=== PATIENT | male | born 1945 | race Caucasian/White ===

== ENCOUNTER → 2017-12-31 15:16 | Outpatient (POV) | payer MEDICARE, SELFPAY | PROVIDERS: PCP Family Medicine; Visit Provider Nurse Practitioner Acute Care | DX: Z00.00 Encounter for general adult medical examination without abnormal findings (principal) ==

== ENCOUNTER → 2018-04-01 14:49 | Outpatient (POV) | payer MEDICARE, SELFPAY | PROVIDERS: Visit Provider Nurse Practitioner Acute Care | DX: Z00.00 Encounter for general adult medical examination without abnormal findings (principal) ==

== ENCOUNTER → 2018-07-08 13:19 | Outpatient (POV) | payer MEDICARE, SELFPAY | PROVIDERS: Visit Provider Nurse Practitioner Acute Care | DX: Z00.00 Encounter for general adult medical examination without abnormal findings (principal) ==

== ENCOUNTER → 2018-12-30 14:44 | Outpatient (POV) | payer MEDICARE, SELFPAY | PROVIDERS: PCP Family Medicine; Visit Provider Nurse Practitioner Family | DX: Z00.00 Encounter for general adult medical examination without abnormal findings (principal) ==

== ENCOUNTER → 2019-05-26 13:51 | Outpatient (POV) | payer MEDICARE, SELFPAY | PROVIDERS: Visit Provider Nurse Practitioner Family | DX: Z00.00 Encounter for general adult medical examination without abnormal findings (principal) ==

== ENCOUNTER → 2020-05-12 10:58 | Outpatient (CLI) | payer MEDICARE, SELFPAY ==
[2020-05-12 12:26] LABS: Coronavirus 19 IgG Antibody Negative (Negative); Coronavirus 19 IgM Antibody Negative (Negative)
== END ==
PROVIDERS: Visit Provider Internal Medicine Gastroenterology
DX: Z01.818 Encounter for other preprocedural examination (principal); Z03.818 Encounter for observation for suspected exposure to other biological agents ruled out; Z96.89 Presence of other specified functional implants
CPT/HCPCS: 36415; 86328

== ENCOUNTER 2020-05-14 11:28 | Day surgery (SDC) | payer MEDICARE, SELFPAY ==
[2020-05-11 11:47] VITALS: BMI 31.9
[2020-05-14] VITALS (9 sets, daily range): BP systolic 110–142; BP diastolic 62–91; PULSE 67–77; RESP 16–18; TEMP 36.4–36.6; O2SAT 95–98
[2020-05-14 11:56] LABS: POC Glucose,Bedside 145 (70-110)
--- NOTE | 2020-05-14 12:30 | FL_ITS ---
PROCEDURE: FL ERCP CLINICAL INDICATION: elevated liver enzymes COMPARISON: No exams were available for comparison FINDINGS: No previous exams available for comparison. Fluoroscopy time: 1 minutes and 41 seconds. The pancreatic duct is incompletely opacified. The duct appears slightly prominent in the pancreatic. Common bile duct has an unremarkable appearance. No common duct stones or dilatation evident. Please correlate with fluoroscopic findings. IMPRESSION: Unremarkable appearing common bile duct with incompletely opacified mildly prominent pancreatic duct. Dictated by: Nolberto Dempsey MD 05/14/2020 16:01 Nolberto Dempsey MD in [place] 05/14/2020 16:01
--- NOTE | 2020-05-14 13:06 | HMH.PROC ---
[facility] Procedure Note Procedure Note:: ERCP procedure Report: Endoscopic retrograde cholangiopancreatography with biliary sphincterotomy and balloon extraction Endoscopist: Ti Shay II, MD Referring Physician: David Cali MD Date of Procedure: May 14, 2020 Equipment: Olympus 180 side viewing endoscope duodenoscope Sedation: MAC sedation Indication: Mr. Madera is a 75-year-old gentleman with recent escalation of his liver chemistries. He also has had right upper quadrant abdominal pain and nausea. The patient recently had blood work on April 15, 2020 showing ALT 110, alkaline phosphatase 297 and total bilirubin 3.6. The patient had a white blood cell count of 4.6 and hemoglobin of 14.3. His lipase was elevated at 690. The patient also had a CT scan of the abdomen and pelvis on January 20, 2020 showing gallstones present within the gallbladder but no evidence of pericholecystic fluid. There was some nonspecific adenopathy in the upper abdomen. The patient's viral hepatitis serologies were negative. The patient does state that the right upper quadrant abdominal pain can radiate into the back. About a month ago he did have some fever and chills. He reports no darkened urine but has had some acholic stools. His liver chemistries were normal in September 2019. Procedure: Prior to the procedure, a history and physical exam was performed, and patient's medications and allergies were reviewed. The risks, benefits and alternatives of the sedation and procedure were discussed with the patient. All questions were answered and informed consent was obtained. The patient was brought to the fluoroscopic radiology room. Patient identification and proposed procedure were verified by the physician and the nurse. The patient was placed in a swimmer's position between left lateral decubitus and prone position and the scope was passed under direct vision. Throughout the procedure, the patient's blood pressure, pulse, and oxygen saturations were monitored continuously. The ERCP was accomplished without difficulty. The patient tolerated the procedure well. Findings: The side-viewing duodenal scope was passed directly into the upper esophagus and advanced to the second portion of the duodenum. There was some mild chronic gastritis and nonerosive GERD. The duodenum was normal. There was a periampullary diverticulum. Both the pancreatic duct and common bile duct were cannulated. The pancreatogram showed a 3 to 4 mm pancreatic duct with a more angulated genu. There were no intraductal filling defects, strictures or ductular ectasias. Next, the common bile duct was cannulated. The cholangiogram showed that the CBD diameter is 6-7 mm. There was normal filling of the intrahepatic biliary system. There was nonfilling of the cystic duct and gallbladder. There was delayed drainage of bile and contrast with some sludgy filling defect in the distal CBD. A generous biliary sphincterotomy was performed. The 9-12 balloon was dilated up to 9 mm from the hilum and swept through the biliary system with the passage of some yellow sludge but mostly bile and contrast. This was consistent with minor choledocholithiasis. The procedure was then ended. The patient was given Indocin subsequently for prophylaxis. Impression: 1. Minor choledocholithiasis status post biliary sphincterotomy and balloon extraction 2. Nonfilling of cystic duct possibly consistent with chronic cholecystitis 3. 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 Periampullary diverticulum (small) Plan: The patient should have clinical improvement with biliary sphincterotomy. I do feel that he has some chronic cholecystitis based upon his symptoms, gallstones and cholangiographic findings. I would recommend that he have minimally invasive laparoscopic cholecystectomy. I will discuss this with the patient and family.
--- NOTE | 2020-05-14 14:10 | HMH.ANESCL ---
[facility] Anesthesia Checklist - Patient Identification Patient Identification: Arm Band, Verbal (Name & ) - Structural Data Admitted From: Home Planned Operative Procedure/s: ERCP Consent for Planned Operative Procedure(s) Verified: Yes Verified Documents: Surgical Consent, History and Physical - NPO Status Verified Time NPO: 00:00 - Chart Verification Results Verified: None - Additional verifications Fingerstick Blood Glucose: 145 Anesthesia Reactions: No - Airway Assessment C-Spine Mobility Assessed: Yes TMJ Mobility Assessed: Yes Dentition: Dentures-good fit (Upper removed) - Neurological Assessment Level of Consciousness: Awake, Alert, Appropriate, Follows Commands Hx Seizures: No Numbness or tingling in extremities: Yes - Anesthesia Plan Anesthesia Risk discussed: Yes Anesthesia Plan: Verified ASA Class: III Anesthesia Type: MAC [facility] History I have reviewed the patient's past medical history: Yes Medical History: Reports:: Atrial Fibrillation, Cancer, Congestive Heart Failure, Coronary Artery Disease, Diabetes Mellitus Type 2, Gastroesophageal Reflux Disease(GERD), Hyperlipidemia, Hypertension, Internal Pacemaker, Peripheral Vascular Disease, Transient Ischemic Attacks (TIA) Denies:: Diabetes Mellitus Type 1, Lung Disease, MRSA, Seizures *Have you ever received a pneumonia vaccine?: Yes *Have you received a flu vaccine this season?: Yes Comment:: [place], obesity Anesthesia experience/problems:: None Laterality Cases: Right: Arthroscopy Shoulder Other Surgeries: Yes: Pacemaker, Other (Ankle sx, jaw, appy, Right shoulder, sinus sx, cardiac cath) Amputation: No Fractures: Yes (ankle, jaw) - *Social History Last grade of school completed: High school graduate Smoking Status: Current every day smoker Tobacco Type: cigarettes # Packs/Day (cigarettes): 1 Alcohol Intake: current Alcohol Intake Frequency:: holidays/special occasions only Substance Use Type: denies use *Occupational Status:: retired Housing: house Household Members: spouse, children *Travel in the last 8 weeks: None Family Hx:: Diabetes
== END 2020-05-14 14:17 | disposition home or self-care (01) ==
LOC: OUTP 11:32
PROVIDERS: PCP Family Medicine; Visit Provider Internal Medicine Gastroenterology
PROC: (CPT 43262; principal; 2020-05-14 12:30)
DX: K80.44 Calculus of bile duct with chronic cholecystitis without obstruction (principal); K86.9 Disease of pancreas, unspecified; K57.10 Diverticulosis of small intestine without perforation or abscess without bleeding; K29.50 Unspecified chronic gastritis without bleeding; K21.9 Gastro-esophageal reflux disease without esophagitis; E11.9 Type 2 diabetes mellitus without complications; I48.91 Unspecified atrial fibrillation; Z85.9 Personal history of malignant neoplasm, unspecified; I50.9 Heart failure, unspecified; I25.10 Atherosclerotic heart disease of native coronary artery without angina pectoris; E78.5 Hyperlipidemia, unspecified; I10 Essential (primary) hypertension
CPT/HCPCS: 43262 ×2; 43264; 74330; 82962; J1610; Q9967

== ENCOUNTER → 2020-06-16 12:57 | Outpatient (CLI) | payer MEDICARE, SELFPAY ==
[2020-06-16 14:25] LABS: Basophils % 0.5 % (0.1-2.0); Eosinophils # 0.2 K/mm3 (0.0-0.4); Eosinophils % 3.9 % (0.1-12.0); Hematocrit 45.2 % (42.0-52.0); Hemoglobin 15.1 g/dL (14.1-18.0); Lymphocytes # 1.3 K/mm3 (0.7-4.5); Lymphocytes % 21.8 % (10-50); Mean Corpuscular HGB Conc 33.5 g/dL (31.8-35.4); Mean Corpuscular Hemoglobin 31.8 pg (27.0-31.2); Mean Corpuscular Volume 95.1 fl (80-94); Mean Platelet Volume 8.9 fl (7.4-10.4); Monocytes # 0.4 K/mm3 (0.1-1.0); Monocytes % 7.2 % (1.7-9.3); Neutrophils % 66.7 % (37.0-80.0); Platelet Count 193 K/mm3 (142-424); Red Blood Count 4.75 M/mm3 (4.60-6.20); Red Cell Distribution Width 14.2 % (11.5-17.5)
[2020-06-16 15:36] LABS: Anion Gap 14.5 mEq/L (5-15); Blood Urea Nitrogen 21 mg/dl (9-20); Calcium 9.3 mg/dl (8.4-10.2); Carbon Dioxide 30 mmol/L (22.0-30.0); Chloride 100 mmol/L (98-107); Estimated Glomerular Filt Rate 49 ml/min (>60); GFR (African American) 60 ML/MIN (>60); Glucose 248 mg/dl (74-100); Potassium 4.5 mmoL/L (3.5-5.1); Sodium 140 mmol/L (136-145)
[2020-06-16 15:43] LABS: Coronavirus 19 IgG Antibody Negative (Negative); Coronavirus 19 IgM Antibody Negative (Negative)
== END ==
PROVIDERS: Visit Provider Surgery
DX: K80.20 Calculus of gallbladder without cholecystitis without obstruction (principal); Z01.818 Encounter for other preprocedural examination; Z20.822 Contact with and (suspected) exposure to COVID-19
CPT/HCPCS: 36415; 80048; 85025; 86328

== ENCOUNTER 2020-06-18 08:30 | Day surgery (SDC) | payer MEDICARE, SELFPAY ==
[2020-06-15 11:18] VITALS: BMI 31.9
[2020-06-18] VITALS (12 sets, daily range): BP systolic 132–156; BP diastolic 63–90; PULSE 61–78; RESP 12–18; TEMP 36.1–43; O2SAT 82–97
--- NOTE | 2020-06-18 09:50 | HMH.ANESCL ---
[facility] Anesthesia Checklist - Structural Data Admitted From: Home Planned Operative Procedure/s: aquiles tanner Consent for Planned Operative Procedure(s) Verified: Yes - Additional verifications Anesthesia Reactions: No Hx Blood Transfusions: No Blood Transfusion Reaction: No - Airway Assessment C-Spine Mobility Assessed: Yes TMJ Mobility Assessed: Yes Dentition: Dentures-poor fitting - Neurological Assessment Level of Consciousness: Awake, Alert, Appropriate - Anesthesia Plan Anesthesia Risk discussed: Yes Anesthesia Plan: Verified ASA Class: III Anesthesia Type: General [facility] History I have reviewed the patient's past medical history: Yes Medical History: Reports:: Atrial Fibrillation, Cancer (prostate), Congestive Heart Failure, Coronary Artery Disease, Diabetes Mellitus Type 2, Gastroesophageal Reflux Disease(GERD), Hyperlipidemia, Hypertension, Internal Pacemaker, Peripheral Vascular Disease, Transient Ischemic Attacks (TIA) Denies:: Diabetes Mellitus Type 1, Lung Disease, MRSA, Seizures *Have you ever received a pneumonia vaccine?: Yes *Have you received a flu vaccine this season?: Yes Other Medical History: Denies: Blood Transfusion Reaction Anesthesia experience/problems:: none Laterality Cases: Right: Arthroscopy Shoulder Other Surgeries: Yes: Colonoscopy, Pacemaker, Other (Ankle sx, jaw, appy, Right shoulder, sinus sx, cardiac cath) Amputation: No Fractures: Yes (ankle, jaw) - *Social History Last grade of school completed: High school graduate Smoking Status: Current every day smoker Tobacco Type: cigarettes # Packs/Day (cigarettes): 1 Alcohol Intake: current Alcohol Intake Frequency:: a few times a week Substance Use Type: denies use *Occupational Status:: retired Housing: house Household Members: spouse, children *Travel in the last 8 weeks: None Family Hx:: Cancer, Diabetes, Hypertension
--- NOTE | 2020-06-18 10:20 | HMH.OPNOTE ---
Date of procedure: 06/18/20 Pre-op Diagnosis:: Chronic calculus cholecystitis Post-op Diagnosis:: Chronic calculus cholecystitis Nodular liver Procedure performed:: Laparoscopic cholecystectomy Surgeon:: Rajinder Agarwal MD Production Assembly Operator(s):: Marquita FELT FINISHING SUPERVISOR:: Rambo Schulte Anesthesia: GETA Estimated blood loss (mL): 25 Operative findings:: Gallbladder wall thickening Severe/dense pericholecystic fat stranding Severe infundibular thickening Nodular liver Operative note:: After informed consent was obtained, the patient was taken to the operating room and placed in the supine position. General anesthesia was induced and the abdomen was prepped and draped in a sterile fashion. After infiltration with local anesthetic an infraumbilical incision was made. A Veress needle was placed in position. The abdomen was insufflated. A 5 mm optical trocar was placed in position. Under direct visualization, a 12 mm trocar was placed in the subxiphoid position and 2 additional 5 mm trocars were placed in the right upper quadrant. Severe pericholecystic fat stranding with dense adhesions between the gallbladder and omentum and gallbladder and small bowel/stomach were noted. The gallbladder was elevated up and over the liver margin. Careful dissection was utilized to free the adhesions. The gallbladder itself was very thickened. Specifically, the infundibulum was fairly severely thickened and dissection was very difficult. The tissue around the cystic duct was carefully dissected. 3 clips were placed proximally and the duct was transected with harmonic kwan. Harmonic kwan were then utilized to dissect the gallbladder away from the liver margin with careful attention to the control of the cystic artery. The gallbladder was placed in a retrieval bag and removed through the subxiphoid trocar site. The liver was also noted to be quite nodular in appearance. Consent from the patient's spouse was obtained for liver biopsy. A small projection left hepatic tissue adjacent to the falciform ligament was carefully elevated and transected with harmonic kwan. The specimen was retrieved with stone forceps and passed off for pathologic evaluation. The right upper quadrant was thoroughly irrigated. No active bleeding or bile leak was noted. Fascia at the subxiphoid trocar site was reapproximated utilizing the NeoClose device. The remaining trocars were removed. All wounds were irrigated and skin was closed with 4-0 Monocryl in a subcuticular fashion. Steri-Strips were applied. The patient's anesthetic agents were reversed and extubation was completed prior to transfer to recovery in stable condition. Condition: stable Disposition: PACU Specimens:: Gallbladder and contents Liver biopsy Complications:: No immediate
--- NOTE | 2020-06-18 10:36 | HMH.ANESI ---
[facility] Anesthesia Record Part I Intake, IV Amount: 1,500 Estimated blood loss (mL): 0 Urine output (mL): 0 Blood Pressure: 156/90 SaO2: 92 Pulse Rate: 78 Respiratory Rate: 12 Temperature: 98.8 F Patient is:: Awake, Stable Stable to PACU at:: 10:30
[2020-06-21 06:14] LABS: POC Glucose,Bedside 196 (70-110)
[2020-06-21 15:24] VITALS: BP 145/84; PULSE 76; TEMP 36.6
--- NOTE | 2020-06-21 15:24 | HMH.ANESII ---
[facility] Anesthesia Record Part II Discharge Time: 11:00 Destination: Surgical Day Care (OP Surgery) PACU nurse assessment reviewed?: Yes Patient Condition:: Good Anesthesia Complications:: None Swallowing reflex intact?: Yes Cyanosis?: No Blood Pressure: 145/84 Pulse Rate: 76 Temperature: 98 F Mental Status: Alert & Oriented Pain level:: 0 Nausea and/or vomitting:: None Intake, IV Amount: 0
== END 2020-06-18 12:40 | disposition home or self-care (01) ==
LOC: OR 08:32
PROVIDERS: PCP Family Medicine; Visit Provider Surgery
PROC: 0FT44ZZ Resection of Gallbladder, Percutaneous Endoscopic Approach (ICD-10-PCS; CPT 47562; principal; 2020-06-18 10:00)
DX: K80.10 Calculus of gallbladder with chronic cholecystitis without obstruction (principal); K76.9 Liver disease, unspecified; K66.0 Peritoneal adhesions (postprocedural) (postinfection); Z85.46 Personal history of malignant neoplasm of prostate; I48.91 Unspecified atrial fibrillation; I11.0 Hypertensive heart disease with heart failure; I50.9 Heart failure, unspecified; E11.9 Type 2 diabetes mellitus without complications; I25.10 Atherosclerotic heart disease of native coronary artery without angina pectoris; K21.9 Gastro-esophageal reflux disease without esophagitis; E78.5 Hyperlipidemia, unspecified; Z95.0 Presence of cardiac pacemaker
CPT/HCPCS: 47562; 49321; 82962; 88304; 88307; 88313; 96374; J2405; J2710